=== PATIENT | female | born 1960 | race Caucasian/White ===

== ENCOUNTER 2019-06-01 22:39 | Emergency (ER) | payer OTHER ==
[~2019-06-01] VITALS: Ht 157.5 cm; Wt 65.8 kg
[2019-06-01 22:50] VITALS: BP 138/84
--- NOTE | 2019-06-01 22:53 | NUR ---
TO LOBBY A/W BED AMBULATORY
[2019-06-01 23:17] LABS: APPEARANCE,URINE HAZY (CLEAR); BILIRUBIN,URINE NEGATIVE (NEGATIVE); BLOOD, URINE 3+ (NEGATIVE); COLOR,URINE YELLOW (YELLOW); LEUKOCYTE ESTERASE ,URINE 3+ (NEGATIVE); NITRITE, URINE NEGATIVE (NEGATIVE); UGLUCOSE NEGATIVE (NEGATIVE)
[2019-06-01 23:34] LABS: RBC,URINE 11-20 (MOD) /HPF (0-5); WBC,URINE TOO MANY TO COUNT /HPF (0-5)
--- NOTE | 2019-06-02 01:50 | NUR ---
PATIENT CALLED TO PUT ON BED NO RESPONSE
--- NOTE | 2019-06-02 01:55 | NUR ---
CALLED FOR THE SECOND TIME NO RESPONSE
--- NOTE | 2019-06-02 02:00 | NUR ---
CALLED FOR THE THIRD TIME NO RESPONSE
== END 2019-06-02 01:50 | disposition left against medical advice (07) ==
LOC: MED 22:39
DX: R30.9 Painful micturition, unspecified (principal); Z53.21 Procedure and treatment not carried out due to patient leaving prior to being seen by health care provider
CPT/HCPCS: 81001; 87086; 87186